=== PATIENT | female | born 1995 | race African-American/Black ===

== ENCOUNTER 2017-08-03 13:43 | Emergency (ER) | payer OTHER ==
[2017-08-03 17:05] VITALS: BP 104/88
--- NOTE | 2017-08-03 17:53 | ED ---
Zacarias Gomes Elizabeth, scribed for Jama Wren MD on 08/03/17 at 1657 . Substance Abuse/Use - HPI Summary HPI Summary: This patient is a 22 year old F presenting to [facility] via EMS with a chief complaint of EtOH intoxication. Patient reports that she drank rum earlier in the day as part of the celebration at . Patient denies taking any other drugs or any other medical problems. Patient reports nausea and vomiting. - History Of Current Complaint Chief Complaint: EDSubstanceAbuse Stated Complaint: INTOXICATION Time Seen by Provider: 08/03/17 13:46 Hx Obtained From: Patient Onset/Duration of Drug/ETOH Abuse: Hours Ingestion History: Type/Name Of Drug - EtOH Overdose Characteristics: Oral Timing Of Abuse: Binge Use Severity Currently: Mild Character: Lethargic Associated Signs And Symptoms: Nausea, Vomiting - Allergies/Home Medications Allergies/Adverse Reactions: Allergies Allergy/AdvReac Type Severity Reaction Status Date / Time No Known Allergies Allergy Verified 08/03/17 14:05 Home Medications: Home Medications NK [No Home Medications Reported] 08/03/17 [History Confirmed 08/03/17] PMH/Surg Hx/FS Hx/Imm Hx Opthamlomology History: Denies: Hx Legally Blind EENT History: Denies: Hx Deafness Infectious Disease History: No Infectious Disease History: Denies: Traveled Outside the [place] in Last 30 Days - Family History Known Family History: Positive: Unknown - Social History Alcohol Use: Occasionally Substance Use Type: Reports: None Smoking Status (MU): Never Smoked Tobacco Review of Systems Negative: Fever Negative: Epistaxis Negative: Chest Pain Positive: Vomiting, Nausea Positive: Slurred Speech All Other Systems Reviewed And Are Negative: Yes Physical Exam - Summary Physical Exam Summary: Appearance: The patient is well-nourished in no acute distress and in no acute pain. Skin: The skin is warm and dry and skin color reflects adequate perfusion. Superficial abrasion to right knee. HEENT: The head is normocephalic and atraumatic. The pupils are equal and reactive. The conjunctivae are clear and without drainage. Nares are patent and without drainage. Mouth reveals moist mucous membranes and the throat is without erythema and exudate. The external ears are intact. The ear canals are patent and without drainage. The tympanic membranes are intact. Neck: the neck is supple with full range of motion and non-tender. There are no carotid bruits. There is no neck vein distension. Respiratory: Chest is non-tender. Lungs are clear to auscultation and breath sounds are symmetrical and equal. Cardiovascular: Heart is regular rate and rhythm. There is no murmur or rub auscultated. There is no peripheral edema and pulses are symmetrical and equal. Abdomen: The abdomen is soft and non-tender. There are normal bowel sounds heard in all four quadrants and there is no organomegaly palpated. Musculoskeletal: There is no back tenderness noted. Extremities are non-tender with full range of motion. There is good capillary refill. There is no peripheral edema or calf tenderness elicited. Neurological: Patient is alert and oriented to person, place and time. The patient has symmetrical motor strength in all four extremities. Cranial nerves are grossly intact. Deep tendon reflexes are symmetrical and equal in all four extremities. Psychiatric: The patient has an appropriate affect and does not exhibit any anxiety or depression. Triage Information Reviewed: Yes Vital Signs On Initial Exam: Initial Vitals Pulse Pulse Ox 82 98 08/03/17 13:59 08/03/17 13:59 Vital Signs Reviewed: Yes Diagnostics - Vital Signs Vital Signs Temp Pulse Resp BP Pulse Ox 08/03/17 15:45 94 15 127/65 99 08/03/17 15:00 60 104/72 99 08/03/17 14:30 62 94/66 97 08/03/17 14:00 99.0 F 67 15 116/80 95 08/03/17 13:59 82 98 - Laboratory Lab Statement: Any lab studies that have been ordered have been reviewed, and results considered in the medical decision making process. Course/Dx - Course Course Of Treatment: Ms. Burnham presented from the [place] event at after drinking rum. She was brought in by EMS vomiting. She denied trauma, medical problems or other substances. She rested awhile and then was up ambulating and clinically sober. She went home with some sober friends. - Diagnoses Provider Diagnoses: Alcohol intoxication Discharge - Sign-Out/Discharge Documenting (check all that apply): Discharge/Admit/Transfer - Discharge Plan Condition: Stable Disposition: HOME Referrals: [facility] [Outside] - 2 Days - Billing Disposition and Condition Condition: STABLE Disposition: HOME The documentation as recorded by the Zacarias neri Elizabeth accurately reflects the service I personally performed and the decisions made by me, Jama Wren MD.
== END 2017-08-03 17:27 | disposition home or self-care (01) ==
LOC: ED 13:43
DX: F10.129 Alcohol abuse with intoxication, unspecified (principal)
CPT/HCPCS: 99283